=== PATIENT | male | born 1965 | race Caucasian/White ===

== ENCOUNTER 2018-10-05 08:41 | Outpatient (CLI) | payer OTHER ==
[~2018-10-05 08:41] MED LIST: FOLIC ACID1 MG; GLUCOPHAGE XR500 MG; PANTOPRAZOLE SO20 MG
== END 2018-10-05 08:50 | disposition home or self-care (01) ==
LOC: RAD 08:41
DX: J31.0 Chronic rhinitis (principal); E08.8 Diabetes mellitus due to underlying condition with unspecified complications; R05 Cough; R22.2 Localized swelling, mass and lump, trunk; K21.9 Gastro-esophageal reflux disease without esophagitis; Z87.891 Personal history of nicotine dependence

== ENCOUNTER 2019-10-27 18:19 | Inpatient (IN) | payer OTHER ==
[~2019-10-27] VITALS: Ht 157.5 cm; Wt 88.9 kg
[2019-10-27] MEDS ORDERED: SIMVASTATIN5 MG (18:33)
[2019-10-27] MEDS ORDERED: ZESTRIL10 M1 (18:33)
[2019-10-27] MEDS ORDERED: GABAPENTIN100 M2 (18:33)
[2019-10-27] MEDS ORDERED: GLIMEPIRIDE1 M1 (18:33)
[2019-10-27] MEDS ORDERED: KEPPRA1000 MG (18:34)
[2019-10-27] MEDS ORDERED: VIMPAT100 MG (18:34)
[2019-11-04] MEDS ORDERED: BUPROPION HCL150 M1 PO (08:07)
[2019-11-04] MEDS ORDERED: SIMVASTATIN40 MG PO (08:08)
[2019-11-16] MEDS ORDERED: CLOTRIMAZOLE10 MG MM (10:04)
[2019-11-16] MEDS ORDERED: FLUCONAZOLE100 MG PO (10:04)
== END 2019-11-16 15:57 | disposition home or self-care (01) | DRG 180 ==
LOC: ER 18:19 → ICU-2 22:53 → ICU 10-29 22:33 → MEDI 11-10 19:16
PROVIDERS: ADMIT Internal Medicine; ATTEND Internal Medicine
PROC: BT4JZZZ Ultrasonography of Kidneys and Bladder (ICD-10-PCS; principal; 2019-10-28)
PROC: B24BZZZ Ultrasonography of Heart with Aorta (ICD-10-PCS; 2019-10-31)
PROC: B030ZZZ Magnetic Resonance Imaging (MRI) of Brain (ICD-10-PCS; 2019-10-31)
PROC: 5A09457 Assistance with Respiratory Ventilation, 24-96 Consecutive Hours, Continuous Positive Airway Pressure (ICD-10-PCS; 2019-10-31)
PROC: 0T9B70Z Drainage of Bladder with Drainage Device, Via Natural or Artificial Opening (ICD-10-PCS; 2019-10-31)
PROC: B54DZZZ Ultrasonography of Bilateral Lower Extremity Veins (ICD-10-PCS; 2019-11-01)
PROC: BB24YZZ Computerized Tomography (CT Scan) of Bilateral Lungs using Other Contrast (ICD-10-PCS; 2019-11-02)
PROC: 02HV33Z Insertion of Infusion Device into Superior Vena Cava, Percutaneous Approach (ICD-10-PCS; 2019-11-02)
PROC: 4A033R1 Measurement of Arterial Saturation, Peripheral, Percutaneous Approach (ICD-10-PCS; 2019-11-03)
PROC: 0DH67UZ Insertion of Feeding Device into Stomach, Via Natural or Artificial Opening (ICD-10-PCS; 2019-11-06)
PROC: 3E0G76Z Introduction of Nutritional Substance into Upper GI, Via Natural or Artificial Opening (ICD-10-PCS; 2019-11-06)
PROC: 4A12X4Z Monitoring of Cardiac Electrical Activity, External Approach (ICD-10-PCS; 2019-11-10)
PROC: BW21Y0Z Computerized Tomography (CT Scan) of Abdomen and Pelvis using Other Contrast, Unenhanced and Enhanced (ICD-10-PCS; 2019-11-13)
DX: C34.12 Malignant neoplasm of upper lobe, left bronchus or lung (principal); J96.02 Acute respiratory failure with hypercapnia; A41.1 Sepsis due to other specified staphylococcus; R65.20 Severe sepsis without septic shock; J90 Pleural effusion, not elsewhere classified; C79.31 Secondary malignant neoplasm of brain; J98.11 Atelectasis; G40.501 Epileptic seizures related to external causes, not intractable, with status epilepticus; E87.2 Acidosis; I48.20 Chronic atrial fibrillation, unspecified; I48.0 Paroxysmal atrial fibrillation; E87.6 Hypokalemia; F28 Other psychotic disorder not due to a substance or known physiological condition; C34.11 Malignant neoplasm of upper lobe, right bronchus or lung; I10 Essential (primary) hypertension; I95.9 Hypotension, unspecified; K21.9 Gastro-esophageal reflux disease without esophagitis; Z66 Do not resuscitate; Z03.818 Encounter for observation for suspected exposure to other biological agents ruled out; Z79.01 Long term (current) use of anticoagulants
CPT/HCPCS: 70553